=== PATIENT | male | born 1945 | race Caucasian/White ===

== ENCOUNTER → 2016-07-03 | Outpatient (CLI) | payer MEDICARE, OTHER ==
[~2016-07-03] MED LIST: ATORVASTATIN CA40 MG ORAL; DIOVAN80 MG ORAL; FOLIC ACID1 MG ORAL; FOSAMAX70 MG ORAL; GAVILAX17 GM PO; KEPPRA500 M3 ORAL; LEVOTHYROXINE100 MCG ORAL; LINZESS290 MCG PO; OYSTER SHELL C500 MG PO; PHENOBARBITAL60 MG ORAL; REGULOID0.52 GM PO; TAMSULOSIN HCL0.4 MG ORAL; VIMPAT150 MG PO; VITAMIN B122500 MCG PO; VITAMIN D400 INTLU ORAL
[2016-07-03 09:41] VITALS: BP 118/60
--- NOTE | 2016-07-03 10:42 | General Progress Note ---
Assessment/Plan Problem List: (1) Constipation ICD Codes: K59.00 - Constipation, unspecified SNOMED: 29884718 (2) Rectal bleed ICD Codes: K62.5 - Hemorrhage of anus and rectum SNOMED: 63960975 (3) Hemorrhoids ICD Codes: K64.9 - Unspecified hemorrhoids SNOMED: 81638622 (4) Mental retardation ICD Codes: F79 - Unspecified intellectual disabilities SNOMED: 68373270, [id number], 622252590 Assessment/Plan no response to topical treatment for hemorrhoids last colonoscopy in 2007 plan colonoscopy and banding increase linzess to 290 Subjective ROS Limited/Unobtainable: No Allergies: Coded Allergies: No Known Allergies (Unverified , 01/10/16) Objective Last 24 Hour Vital Signs Date Time Temp Pulse Resp B/P Pulse Ox O2 Delivery O2 Flow Rate FiO2 07/03/16 09:41 98.2 92 16 118/60 General Appearance: alert EENT: normal ENT inspection Neck: supple Cardiovascular: normal rate Respiratory/Chest: lungs clear Abdomen: normal bowel sounds, non tender, soft Extremities: non-tender YESICA GOLDEN Jul 03, 2016 10:42
== END | disposition home or self-care (01) ==
LOC: PAN 09:24
DX: K59.00 Constipation, unspecified (principal); K62.5 Hemorrhage of anus and rectum; K64.9 Unspecified hemorrhoids; F79 Unspecified intellectual disabilities
CPT/HCPCS: 99212